=== PATIENT | male | born 1950 | race Hispanic/Latino ===

== ENCOUNTER 2022-12-18 06:42 | Day surgery (SDC) | payer OTHER ==
[2022-12-14 08:36] LABS: MEAN CORPUSCULAR HEMOGLOBIN 31.5 pg (27.0-33.0); MEAN CORPUSCULAR HGB CONC 34.3 g/dL (32.0-36.0); MEAN CORPUSCULAR VOLUME 91.9 fL (79-99); PLATELET COUNT (AUTO) 141 K/uL (130-400); RED BLOOD CELL COUNT(AUTO) 5.33 MIL/uL (4.50-6.20); RED CELL DISTRIBUTION WIDTH 12.5 % (11.0-15.5); WHITE BLOOD COUNT (AUTO) 6.3 K/uL (4.8-10.8)
[2022-12-14 08:52] LABS: POTASSIUM 4.5 mmol/L (3.5-5.1)
[2022-12-14 08:55] LABS: INR 1.05 (0.85-1.15); PROTHROMBIN TIME 11.4 SEC (9.6-11.6)
[2022-12-14 08:56] LABS: PARTIAL THROMBOPLASTIN TIME 28.5 SEC (26.3-35.5)
[2022-12-14 09:17] VITALS: BP 150/74
[2022-12-14 09:34] LABS: BASOPHILS % (MANUAL) 1 % (0-2); EOSINOPHILS % (MANUAL) 1 % (1-6); LYMPHOCYTES % (MANUAL) 24 % (22-44); MAN.DIFF COMMENT-IMPRESSION MANUAL DIFFERENTIAL; MONOCYTES % (MANUAL) 10 % (2-9); PLATELET MORPHOLOGY COMMENT ADEQUATE; SEGMENTED NEUTROPHILS % 64 % (40-70)
[~2022-12-18] VITALS: Ht 170.2 cm; Wt 102.1 kg
[2022-12-18] VITALS (9 sets, daily range): BP systolic 110–154; BP diastolic 51–74
[~2022-12-18 06:42] MED LIST: ATOR20TA65 PO; CEFAZOLIN SODIUM 2 GM VIAL IVPB SCH; DULO60CA64 PO; METO-408 PO; OLME-9 PO
[2022-12-18] MEDS ORDERED: 0.9%NACL 1000ML 1,000 ML IV ONE (09:00)
[2022-12-18] MEDS ORDERED: BACITRACIN 1 EACH PACKET TP ONE (14:19)
[2022-12-18] MEDS ORDERED: TRAM50TA4 PO ×2 (14:52→14:55)
[2022-12-18] MEDS ORDERED: ACETAMINOPHEN 500 MG TABLET PO PRN (15:00)
[2022-12-18] MEDS ORDERED: ACETAMINOPHEN WITH CODEINE 1 TAB TAB PO PRN (15:00)
== END 2022-12-18 18:15 | disposition home or self-care (01) ==
LOC: DAH 06:42
PROVIDERS: ATTEND Internal Medicine Cardiovascular Disease
DX: I42.8 Other cardiomyopathies (principal); I44.2 Atrioventricular block, complete; I47.1 Supraventricular tachycardia; I11.0 Hypertensive heart disease with heart failure; I50.42 Chronic combined systolic (congestive) and diastolic (congestive) heart failure; E78.5 Hyperlipidemia, unspecified; E66.9 Obesity, unspecified; Z79.01 Long term (current) use of anticoagulants; Z79.899 Other long term (current) drug therapy; Z79.82 Long term (current) use of aspirin; Z68.34 Body mass index [BMI] 34.0-34.9, adult
CPT/HCPCS: 80048; 85025; 85610; 85730; 36415; 93005; 33229; 33225; 71045; C1769; C1900; C2621; J7030; A4215; A4222; A4221; A4663; A4216; A4606; A4223 ×3; 99156; 99157

== ENCOUNTER → 2024-07-20 | Outpatient (CLI) | payer OTHER ==
[~2024-07-20] MED LIST changes: -CEFAZOLIN SODIUM 2 GM VIAL IVPB SCH; +OLME-30 PO; -OLME-9 PO; +TRAM50TA4 PO
[2024-07-20] MEDS: REGADENOSON 0.4 MG/5 ML PF SYG IVP ONE (11:17)
== END | disposition home or self-care (01) ==
LOC: SHCH 07:36
PROVIDERS: ATTEND Internal Medicine Cardiovascular Disease
DX: R06.02 Shortness of breath (principal)
CPT/HCPCS: 78452; 93017; J2785; A9500 ×2